=== PATIENT | female | born 1950 | race Caucasian/White ===

== ENCOUNTER → 2023-06-22 12:57 | Outpatient (REF) | payer MEDICARE, SELFPAY | LOC: DHCBS MAIN 12:57 | PROVIDERS: ATTENDING PHYSICIAN Internal Medicine Cardiovascular Disease; FAMILY PHYSICIAN Family Medicine | DX: I10 Essential (primary) hypertension (principal) | CPT/HCPCS: 93306 ==

== ENCOUNTER → 2023-06-28 13:01 | Outpatient (REF) | payer MEDICARE, SELFPAY | LOC: RAD 13:01 | PROVIDERS: ATTENDING PHYSICIAN Internal Medicine Endocrinology, Diabetes & Metabolism; FAMILY PHYSICIAN Family Medicine | DX: E04.2 Nontoxic multinodular goiter (principal) | CPT/HCPCS: 76536 ==

== ENCOUNTER → 2023-10-24 11:27 | Outpatient (REF) | payer MEDICARE, SELFPAY | LOC: HWRAD 11:27 | PROVIDERS: ATTENDING PHYSICIAN Internal Medicine Gastroenterology; FAMILY PHYSICIAN Family Medicine; REFERRING PHYSICIAN Nurse Practitioner Obstetrics & Gynecology | DX: R10.31 Right lower quadrant pain (principal); R14.0 Abdominal distension (gaseous); R14.3 Flatulence | CPT/HCPCS: 74177; Q9967 ==

== ENCOUNTER → 2024-04-19 12:41 | Outpatient (REF) | payer MEDICARE, SELFPAY | LOC: HWRAD 12:41 | PROVIDERS: ATTENDING PHYSICIAN Internal Medicine Endocrinology, Diabetes & Metabolism; FAMILY PHYSICIAN Family Medicine | DX: E04.2 Nontoxic multinodular goiter (principal) | CPT/HCPCS: 76536 ==

== ENCOUNTER → 2024-06-29 11:00 | Outpatient (REF) | payer MEDICARE, SELFPAY | LOC: RCS 11:00 | PROVIDERS: ATTENDING PHYSICIAN Internal Medicine Cardiovascular Disease; FAMILY PHYSICIAN Family Medicine | DX: I77.810 Thoracic aortic ectasia (principal); I35.1 Nonrheumatic aortic (valve) insufficiency | CPT/HCPCS: 93306 ==

== ENCOUNTER → 2025-01-07 10:43 | Outpatient (REF) | payer MEDICARE, SELFPAY | LOC: RAD 10:43 | PROVIDERS: ATTENDING PHYSICIAN Internal Medicine Cardiovascular Disease; FAMILY PHYSICIAN Family Medicine | DX: I77.810 Thoracic aortic ectasia (principal) | CPT/HCPCS: 71275; Q9967 ==

== ENCOUNTER → 2025-02-19 09:48 | Outpatient (REF) | payer MEDICARE, SELFPAY | LOC: RAD 09:48 | PROVIDERS: ATTENDING PHYSICIAN Internal Medicine Endocrinology, Diabetes & Metabolism; FAMILY PHYSICIAN Family Medicine | DX: E04.2 Nontoxic multinodular goiter (principal) | CPT/HCPCS: 76536 ==